=== PATIENT | male | born 1955 | race Caucasian/White ===

== ENCOUNTER 2021-12-21 20:48 | Emergency (ER) | payer MEDICARE, OTHER ==
[2021-12-21] MEDS ORDERED: Take Home: Acetaminophen/oxyCODONE 325-5 MG, 2 Tab Pack PO ONE (21:53)
== END 2021-12-21 22:35 | disposition home or self-care (01) ==
LOC: CC.ED 20:48
DX: S89.91XA Unspecified injury of right lower leg, initial encounter (principal); M54.41 Lumbago with sciatica, right side; I10 Essential (primary) hypertension; E11.9 Type 2 diabetes mellitus without complications; F17.210 Nicotine dependence, cigarettes, uncomplicated; Z88.5 Allergy status to narcotic agent; Z88.8 Allergy status to other drugs, medicaments and biological substances; Z79.899 Other long term (current) drug therapy; W18.09XA Striking against other object with subsequent fall, initial encounter
CPT/HCPCS: 73590; 99283; A9270